=== PATIENT | female | born 2005 | race African-American/Black ===

== ENCOUNTER 2024-08-29 03:45 | Emergency (ER) | payer OTHER ==
[~2024-08-29] VITALS: Ht 162.6 cm; Wt 54.5 kg
[2024-08-29 03:47] VITALS: TEMP 98.2
[2024-08-29 07:53] LABS: APPEARANCE,URINE CLEAR (CLEAR); BILIRUBIN,URINE NEGATIVE (NEGATIVE); COLOR,URINE LIGHT YELLOW (YELLOW); GLUCOSE, URINE (UA) NEGATIVE (NEGATIVE); LEUKOCYTE ESTERASE ,URINE NEGATIVE (NEGATIVE); NITRATE,URINE NEGATIVE (NEGATIVE); OCCULT BLOOD,URINE NEGATIVE (NEGATIVE); PROTEIN,URINE NEGATIVE (NEGATIVE); SPECIFIC GRAVITIY, URINE 1.019 (1.003-1.030); UROBILINOGEN,URINE <=1.0 mg/dL (<=1.0)
[2024-08-29 07:57] LABS: BASOPHILS % (AUTO) 0.8 % (0.0-2.0); EOSINOPHILS % (AUTO) 1.5 % (1.0-6.0); HEMATOCRIT 42.8 % (36-46); LYMPHOCYTES # (AUTO) 3.1 K/uL (1.0-4.8); LYMPHOCYTES % (AUTO) 27.3 % (22.0-44.0); MEAN CORPUSCULAR HEMOGLOBIN 31.4 pg (26.0-34.0); MEAN CORPUSCULAR HGB CONC 32.6 G/dL (31.0-37.0); MEAN CORPUSCULAR VOLUME 96 fL (80-100); MONOCYTES # (AUTO) 0.5 K/uL (0.1-1.0); MONOCYTES % (AUTO) 4.2 % (2.0-9.0); NEUTROPHILS # (AUTO) 7.7 K/uL (1.8-7.7); NEUTROPHILS % (AUTO) 66.2 % (40.0-70.0); PLATELET COUNT (AUTO) 297 K/uL (150-450); RED BLOOD CELL COUNT(AUTO) 4.45 MIL/uL (4.00-5.20); RED CELL DISTRIBUTION WIDTH 16.1 % (11.5-14.5); WHITE BLOOD COUNT (AUTO) 11.5 K/uL (4.5-11.0)
[2024-08-29 08:02] LABS: ANION GAP 10 mmol/L (8-16); CALCIUM, TOTAL 8.8 mg/dL (8.8-10.5); CARBON DIOXIDE 26 mmol/L (22-29); CHLORIDE 102 mmol/L (98-107); CREATININE 0.68 mg/dL (0.60-1.30); GLOMERULAR FILTR. RATE CALC > 60 mL/min (>60); GLUCOSE,RANDOM 63 mg/dL (70-110); POTASSIUM 4.1 mmol/L (3.5-5.1); SODIUM SERUM 138 mmol/L (136-145); UREA NITROGEN, BLOOD 5 mg/dL (7-18)
[2024-08-29 08:08] LABS: BACTERIA,URINE None Seen /HPF (None Seen); RBC,URINE 0-2 /HPF (0-2); SQUAMOUS EPITHELIAL CELL,UR Few /LPF (None Seen); WBC,URINE None Seen /HPF (0-5)
[2024-08-29] MEDS: KETOROLAC TROMETHAMINE 30 MG/ML VIAL IVP ONE (08:23)
[2024-08-29 09:00] VITALS: BP 130/79; PULSE 77; RESP 18; O2SAT 98
[2024-08-29] MEDS: FentaNYL CITRATE PF 100 MCG/2 ML VIAL IVP ONE (10:04)
== END 2024-08-29 11:01 | disposition left against medical advice (07) ==
LOC: EMS 03:49
DX: R10.84 Generalized abdominal pain (principal); J45.909 Unspecified asthma, uncomplicated
CPT/HCPCS: 99285; 96374; 76830; 76856; 96375; 80048; 81001; 84703; 85025; 36415; J3010; J1885

== ENCOUNTER 2024-11-24 04:45 | Emergency (ER) | payer OTHER ==
[~2024-11-24] VITALS: Ht 165.1 cm; Wt 65.0 kg
[2024-11-24] MEDS: ACETAMINOPHEN 325 MG TABLET PO ONE (05:55)
[2024-11-24] MEDS: LIDOCAINE 1% 10 ML VIAL ID ONE (06:17)
[2024-11-24] MEDS ORDERED: DOXY-354 PO (06:36)
[2024-11-24] MEDS: DOXYCYCLINE HYCLATE 100 MG TABLET PO ONE (06:45)
[2024-11-24 06:51] VITALS: BP 119/68; PULSE 78; RESP 16; TEMP 97.9; O2SAT 100
== END 2024-11-24 07:27 | disposition home or self-care (01) ==
LOC: EMS 04:46
DX: L02.415 Cutaneous abscess of right lower limb (principal); J45.909 Unspecified asthma, uncomplicated; Z88.6 Allergy status to analgesic agent
CPT/HCPCS: 99283; 10060; J3490